=== PATIENT | male | born 1965 | race Caucasian/White ===

== ENCOUNTER 2019-08-23 17:04 | Emergency (ER) | payer SELFPAY ==
[~2019-08-23] VITALS: Ht 185.4 cm; Wt 79.4 kg
[~2019-08-23 17:04] MED LIST: ALBU90OI INH; Augmentin 875-1 EACH PO; CEPH500 PO; Cyclobenzaprine5 MG PO; DOXY100 PO; IBUP800 PO; Keflex500 MG PO; Norco 5-325 Ta1 EACH PO; OSEL75CA PO; OXYACE5T PO; PROM25 PO; Percocet 5-3251 EACH PO; RXOXYACE PO; RXSULTRIDS PO; SILSUL1TC TOP; SULTRIDS PO
== END 2019-08-23 20:15 | disposition home or self-care (01) ==
LOC: ER 17:04
DX: S80.852A Superficial foreign body, left lower leg, initial encounter (principal); F17.210 Nicotine dependence, cigarettes, uncomplicated; Z23 Encounter for immunization; W45.8XXA Other foreign body or object entering through skin, initial encounter
CPT/HCPCS: 10120; 73590; 90471; 90714; 99283-25

== ENCOUNTER 2020-09-14 08:34 | Emergency (ER) | payer OTHER ==
[~2020-09-14] VITALS: Ht 185.4 cm; Wt 86.2 kg
== END 2020-09-14 10:31 | disposition home or self-care (01) ==
LOC: ER 08:34
DX: S61.213A Laceration without foreign body of left middle finger without damage to nail, initial encounter (principal); S61.215A Laceration without foreign body of left ring finger without damage to nail, initial encounter; F17.210 Nicotine dependence, cigarettes, uncomplicated; W23.1XXA Caught, crushed, jammed, or pinched between stationary objects, initial encounter; Y92.89 Other specified places as the place of occurrence of the external cause; Y99.0 Civilian activity done for income or pay
CPT/HCPCS: 12001; 73130; 99283-25

== ENCOUNTER 2020-09-25 10:43 | Emergency (ER) | payer OTHER ==
[~2020-09-25] VITALS: Ht 185.4 cm; Wt 83.9 kg
== END 2020-09-25 11:47 | disposition home or self-care (01) ==
LOC: ER 10:43
DX: S61.213D Laceration without foreign body of left middle finger without damage to nail, subsequent encounter (principal); S61.215D Laceration without foreign body of left ring finger without damage to nail, subsequent encounter; F17.210 Nicotine dependence, cigarettes, uncomplicated; X58.XXXD Exposure to other specified factors, subsequent encounter